=== PATIENT | male | born 1965 | race African-American/Black ===

== ENCOUNTER 2023-12-29 05:07 | Inpatient (IN) | payer BC, SELFPAY ==
[2023-12-29] VITALS (85 sets, daily range): BP systolic 91–212; BP diastolic 54–117; BMI 39.3; BMI 37.7
--- NOTE | 2023-12-29 02:58 | ED.GENMED ---
History of Present Illness
General
Chief Complaint: Blood Pressure Problem
Source: patient, spouse and previous hospital records (Previous hospitalization 2020 for somewhat similar complaint.)
Exam Limitations: altered mental status
Time Seen by Provider: 12/29/23 02:53
Nursing documentation reviewed up to this point in time: agreed with
History of Present Illness
History of Present Illness:
This is a 58-year-old gentleman with history of hypertension, hyperlipidemia, obstructive sleep apnea with prior history of malignant hypertension with hypertensive encephalopathy requiring hospitalization with IV Cardene, unremarkable neuroimaging.
called 911 tonight when she found her poorly responsive lying on the bed, significantly hypertensive. She states very similar episodes have occurred 5 times previously with altered mental status related to significant hypertension.
She states he has been taking his blood pressure medications religiously without recent change.
He has required acute hospitalization with IV Cardene on 2 previous occasions, most recently 2020. Other episodes less severe requiring oral medications with discharge to home.
There has been no recent falls, he takes no anticoagulants. No history of alcohol nor drug use.
No history of prior CVA.
Noted to be significantly hypertensive prehospital. He arrives via EMS.
Past History
Past History
ED Past Medical History: HTN, Hypercholesterolemia, Renal failure (Chronic kidney disease stage III with episode of acute kidney injury related to hypertension March 2020), Psychiatric (PTSD) and Other (Migraine headaches; hypertensive
encephalopathy; obstructive sleep apnea)
ED Past Surgical History: Orthopedic
Social History
Tobacco: Non-smoker
Alcohol: None
Drug: None
Personal:
Living: with family
Employment: Employed
Family History
Family History: Other (Noncontributory)
Phy Exam
Physical Exam
Physical Exam:
GENERAL: 58-year-old obese gentleman appears somewhat older than stated age. He is drowsy, appears uncomfortable, able to follow simple commands and answering simple questions appropriately. Admits to significant headache, denies chest pain,
denies weakness nor numbness.
EYE: pupils equal and reactive. Moderate photophobia. Anicteric
NECK: Supple, nontender, no meningismus, no significant adenopathy. No JVD.
ENT: posterior pharynx is clear, oral mucosa is moist. TM clear b/l, nares patent.
CARDIAC: Regular rate and rhythm. no murmur.
LUNGS: Clear breath sounds bilaterally, no acute respiratory distress, no wheezes/rales/rhonchi
ABDOMEN: Rotund, soft, nondistended, without focal tenderness, no r/g, normoactive BS.
NEUROLOGICAL: Moderately drowsy, opens eyes to verbal stimuli, answering simple questions and following simple commands, oriented x 2, motor strength 5/5 bilaterally. Gross sensation is intact.
SKIN: Warm and dry, normal color, skin intact. No rash.
MUSCULOSKELETAL: No C/C/E. peripheral pulses are full and equal b/l. No palpable tenderness.
PSYCH: Normal and appropriate interaction.
Scores
NIH Stroke Score
Level of Consciousness: 1 - Arousable
LOC Questions: 0-Answers both correctly
LOC Commands: 0-Performs both correctly
Best Horizontal Gaze: 0-Normal
Visual Hanley: 0=Normal, no visual loss
Facial Palsy: 0=Normal, symmetrical
Motor - Right Arm: 0=No drift 10 seconds
Motor - Left Arm: 0=No drift 10 seconds
Motor - Right Le-No drift 5 seconds
Motor - Left Le-No drift 5 seconds
Limb Ataxia: 0-Absent
Sensation: 0-Normal
Best Language: 0-No aphasia
Dysarthria: 0-Normal
Extinction and Inattention: 0-No abnormality
Total Score:: 1
Course
Orders/Labs/Results
Orders:
Orders
12/29/23 02:51
Electrocardiogram (*1) Urgent
Reason for Study: Hypertension, Benign
EKG- Treatment ONCE
12/29/23 02:53
CT Head W/o Iv Contrast Urgent
Comment:
Reason For Exam: hypertensive/confusion
12/29/23 03:00
CMP [Comprehensive Metabolic Panel] Urgent
Complete Blood Count/With Diff Urgent
Troponin I Urgent
12/29/23 03:06
Nicardipine 40 mg/200 ml [Cardene] 40 mg in 200 ml IV NOW
Initial dose in mg/hr, then titrate:: 5
Titrate to keep:: SBP 140 - 160 mmHg
Titrate by mg/hr:: 2.5 mg/hr
Frequency of titrations (minutes):: 5-15 minutes
Maximum dose in mg/hr:: 15
Begin to taper infusion when:: Remained at goal for 2hrs
Taper by mg/hr:: 2.5 mg/hr
Frequency of taper (minutes) if patient maintains goal:: every 15-30 minutes
Taper to off?: Yes
If infusion off & no longer maintaining goal:: Contact Provider
Abnormal Lab Results
12/29/23
03:00
RBC 4.24 L 10^6/uL
(4.70-6.10)
Hct 37.0 L %
(39.0-52.0)
Absolute Monos (auto) 1.0 H 10^3/uL
(0.1-0.6)
Monocytes % 12.2 H %
(1.7-9.3)
Potassium 3.4 L mmol/L
(3.5-5.1)
BUN 23 H mg/dl
(9-20)
12/29/23 03:00
12/29/23 03:00
Vital Signs
Initial and Last Documented VS:
Initial Vital Signs
Temp Pulse Resp BP Pulse Ox
98.6 F 61 18 212/113 98
12/29/23 02:55 12/29/23 02:55 12/29/23 02:55 12/29/23 02:55 12/29/23 02:55
Last Documented Vital Signs
Temp Pulse Resp BP Pulse Ox
98.6 F 61 18 212/113 98
12/29/23 02:55 12/29/23 02:55 12/29/23 02:55 12/29/23 02:55 12/29/23 02:55
MDM/Problems Addressed
Differential Diagnosis Includes:
Concern for recurrent hypertensive encephalopathy, concern for acute CVA�hemorrhagic versus ischemic.
Onset of symptoms unknown as patient found altered by upon returning home from work.
Significantly hypertensive thus at this point not a candidate for tPA as well as initial NIH stroke scale of 1�arousable upon arrival. Since arrival however now is much more awake, much more conversant and NIH stroke scale has improved to 0.
Chronic conditions affecting care: HTN, Neurological disorder (History of similar hypertensive encephalopathy episodes in the past. History of migraine headaches.) and Kidney disease
*Radiology
Radiology exam reviewed: radiology read reviewed (CT of the head is unremarkable)
*Pulse Oximetry
Patient hypoxic: no
*EKG
Interpreted by ED Provider?: Yes
Interpretation: abnormal
Comparison EKG: no changes (Unchanged from previous February 2023)
Rate: normal
Rhythm: sinus
[place]: normal axis
Interval: normal interval
QRS Pattern: normal QRS
Ischemia: T-wave inversion (Flipped T waves laterally, similar and unchanged from previous.)
*Controls Technician Interpretation
Rate: normal
Interpretation: normal
Rhythm: sinus
*Critical Care Note
Total Time (30-74mins, 75-104mins- exclusive of procedures): 30
comment:
Critical care statement: A total of 30 minutes of critical care time was provided for this patient. This includes management of unstable vital signs, evaluation of the patient at bedside, reviewing the patient's pertinent medical records, discussion
with consultants, review of old EKGs and review of pertinent medical records. This time with separate from time utilized to perform the aforementioned documented procedures
Update Note
Update Note:
Blood pressure markedly improved with IV Cardene.
Patient continues with generalized headache, slowly improving. Complaints of 'funny sensation of left hand' he also notes upper central chest discomfort that is much worse with palpation. No crepitus. does note that she attempted to arouse
her by banging on his chest quite vigorously and she also noted that he was lying on his left side, left arm beneath him.
He continues to have no focal neurodeficits. Hand grasp are equal, negative drift, sensation intact.
CT of the head is unremarkable.
Will continue IV Cardene, continue frequent neurochecks and admit to hospitalist service.
ED Attending Note
-
Portions of this chart may have been created with voice recognition software.� Occasional wrong word or��sound alike� substitutions may have occurred due to the inherent limitations of voice recognition software.
Discharge Plan
Departure
Patient Disposition: Admit
Date of Disposition: 12/29/23
Time of Disposition: 04:22
Admit to: IVU
Admit to doctor: Mart
Presentation/result/management discussed w/ accepting MD/DO: Hospitalist
Condition: Serious
Discharge Problem:
Malignant essential hypertension, Hypertensive encephalopathy
Prescriptions:
No Action
prazosin [Minipress] 2 MG capsule
2 mg PO BID
diclofenac sodium 100 GRAM/TUBE gel
1 applic topical DAILYPRN PRN (Reason: leg/knee pain)
nifedipine 30 MG tablet extended release
30 mg PO DAILY Qty: 30 0RF
metoprolol tartrate 100 mg tablet
100 mg PO BID
chlorthalidone 25 mg tablet
25 mg PO DAILY
sildenafil 100 mg tablet
100 mg PO DAILY PRN (Reason: ED)
pravastatin 80 mg tablet
80 mg PO QPM
valsartan 160 mg tablet
160 mg PO DAILY
duloxetine 20 mg capsule,delayed release(DR/EC)
20 mg PO DAILY
cholecalciferol (vitamin D3) 25 mcg (1,000 unit) tablet
25 mcg PO DAILY
Referrals:
Russ Fierro DO [Family Provider] -
Interventions
Interventions:
*Risk Screen - Suicide Last Done: 12/29/23 02:55
*General Assessment Last Done: 12/29/23 02:55
*Neglect/Abuse Screening Last Done: 12/29/23 02:55
ED- Fall Risk Assessment Last Done: 12/29/23 03:14
ED- Cardiac Assessment Last Done: 12/29/23 03:14
ED- Neurological Assessment Last Done: 12/29/23 03:14
ED- Pulmonary Assessment Last Done: 12/29/23 03:14
Discharge Date and Time
Print Language: PASHTO
[2023-12-29] MEDS: CARDENE 200 IV ×2 (03:12→08:24)
[2023-12-29 03:13] LABS: % Basophils 0.5 % (0-2); % Eosinophils 1.4 % (0-6); % Immature Granulocytes 0.4 % (0-0.5); % Lymphocytes 22.4 % (20.5-51.1); % Monocytes 12.2 % (1.7-9.3); % Neutrophils 63.1 % (42.2-75.2); Absolute Eosinophils 0.1 10^3/uL (0-0.7); Absolute Lymphocytes 1.8 10^3/uL (1.2-3.4); Absolute Neutrophils 4.9 10^3/uL (1.4-6.5); Mean Corp Hgb Conc. 35.1 g/dL (33.0-37.0); Mean Corpuscular Hgb 30.7 pg (27.0-31.0); Mean Corpuscular Volume 87.3 fL (80.0-94.0); Nucleated Red Blood Cells % 0 % (-); Platelet Count 223 10^3/uL (130-400); Red Blood Cell Count 4.24 10^6/uL (4.70-6.10); Red Cell Dist. Width 12.1 % (11.5-14.5); White Blood Cell Count 7.8 10^3/uL (4.8-10.8)
[2023-12-29 03:30] LABS: ALT (SGPT) 22 U/L (0-50); AST (SGOT) 29 U/L (17-59); Albumin 4.3 g/dl (3.5-5.0); Alkaline Phosphatase 72 U/L (38-126); Blood Urea Nitrogen 23 mg/dl (9-20); Calcium 8.9 mg/dl (8.4-10.2); Carbon Dioxide 29 mmol/L (22-30); Chloride 100 mmol/L (98-107); Estimated Creatinine Clearance 93 ml/min; Glucose 95 mg/dl (70-99); Potassium 3.4 mmol/L (3.5-5.1); Sodium 138 mmol/L (135-145); Total Bilirubin 1.3 mg/dl (0.2-1.3); Total Protein 7.1 g/dl (6.3-8.2); eGFR > 60.00
[2023-12-29 03:41] LABS: Troponin I 0.014 ng/ml
--- NOTE | 2023-12-29 05:02 | HPS.HSE ---
Family Physician
-
Family Physician: Russ Fierro
Chief Complaint
-
Unresponsive
History of Present Illness
Patient is a 58y M with PMH significant for hypertension and obesity who presents to ED after being found down at home by his . History obtained from patient and at the bedside. Patient states that he was watching the football game
this evening and her noted that he 'didn't feel well'. He cannot be more specific, but notes that he has had similar feelings in the past. He went up to bed around 11 - 11:30 PM this evening and that is the last thing that he recalls. His
came home and found him lying on the floor next to the bed. he was extremely difficult to arouse - ultimately requiring aggressive sternal rub to elicit a response. Patient did begin to come around and was brought to the ED for further evaluation
and treatment.
On arrival here at the ED, patient was much improved and appeared to be at his baseline according to his .
He complains of significant headache - currently a 09/16.
Patient has had multiple previous similar episodes. His most recent was within the past year when he was hospitalized at another institution.
He was last hospitalized here in March 2020.
Patient denies any recent changes in his med regimen. No recent illness.
Medical History
Past Medical History
Past Medical History: Reports Other
Additional Past Medical History:
Hypertension
Dyslipidemia
Obesity
FLORIN on CPAP
Anxiety
Bilateral PE (s/p TKA Revision)
Past Surgical History: Reports Other
Additional Past Surgical History:
Left Knee Arthroscopy
Right TKA / Revision Arthroplasty
Cholecystectomy
Cervical Fusion
Achilles Repair
Social History
Tobacco: Non-smoker
Alcohol: Occasional
Drug: None
Personal:
Living: With Family
Family History
Family History: Other (Father: HTN, Cerebral Aneurysm)
Allergies / Home Medications
Allergies reflects when Allergies were last updated in [employer]
Home Medications with original date entered in [employer]
Allergy/Medication List:
Allergies
Allergy/AdvReac Type Severity Reaction Status Date / Time
acetaminophen [From Percocet] Allergy Unknown Verified 12/29/23 03:03
adhesive tape Allergy Itching Verified 12/29/23 03:03
oxycodone [From Percocet] Allergy Hives/ITCHI Verified 12/29/23 03:03
NG
Home Medications
prazosin 2 mg capsule (Minipress) 2 mg PO BID Blood pressure 03/23/20
nifedipine 30 mg tablet,extended release 30 mg PO DAILY #30 tabs 03/26/20
duloxetine 20 mg capsule,delayed release 20 mg PO DAILY 03/05/23
metoprolol tartrate 100 mg tablet 100 mg PO BID 03/05/23
valsartan 160 mg tablet 320 mg PO DAILY 03/05/23
Review of Systems
-
History Source: Patient and Family
A 12 point ROS was completed and negative except as noted: Yes
Constitutional: Reports Fatigue; Denies Fever or Chills
Respiratory: Denies Cough or Trouble Breathing
Cardiac: Reports Chest Pain; Denies Palpitations
Abdomen/GI: Denies Abdominal Pain, Nausea, Vomiting or Diarrhea
: Denies Dysuria, Frequency or Flank Pain
Musculoskeletal: Denies Joint Pain or Edema
Neurological: Reports Headache; Denies Dizzy, Weakness or Numbness
Psych: Denies Depression or Anxiety
Physical Exam
Vital Signs
Vital Signs
Temp Pulse Resp BP Pulse Ox
98.6 F 61 18 212/113 98
12/29/23 02:55 12/29/23 02:55 12/29/23 02:55 12/29/23 02:55 12/29/23 02:55
Physical Exam
General: Other (58y M in no acute distress.)
HEENT: Moist mucous membranes, PERRLA and Other (Thick neck.)
Respiratory: Clear; No Wheezes, Rales or Rhonchi
Cardiac: S1/S2 and Regular Rhythm; No Murmur
GI: Soft, Non Tender, Non Distended and Normal Bowel Sounds
Musculoskeletal: No Clubbing, No Cyanosis and Other (1+ edema RLE)
Neuro: AO x 3 and Nonfocal/grossly intact
Laboratory Results
-
12/29/23 03:00
12/29/23 03:00
Laboratory Results
Total Bilirubin 1.3 mg/dl (0.2-1.3) 12/29/23 03:00
AST 29 U/L (17-59) 12/29/23 03:00
ALT 22 U/L (0-50) 12/29/23 03:00
Alkaline Phosphatase 72 U/L (38-126) 12/29/23 03:00
Troponin I 0.014 ng/ml 12/29/23 03:00
Impression/Plan
-
A/P: Patient is a 58y M with PMH significant for hypertension and prior episodes of hypertensive emergency who presents to ED after being found down this evening by his .
Hypertensive Emergency
Hypertensive Encephalopathy - Resolved
- Admit to ICU for further evaluation and treatment.
- Continue nicardipine infusion and titrate as needed for BP control.
- Nephrology evaluation for additional recommendations.
- Resume home BP med regimen in the AM and titrate off of nicardipine as able.
- Follow for any new / worsening symptoms. - Check UA, protein:creatinine, etc.
- Supportive care for headache, etc.
Chest Pain
- Patient admits to aching chest pain - likely secondary to vigorous sternal rub performed by his this evening.
- Troponin / EKG unremarkable.
- Monitor for any new / worsening symptoms.
Anxiety
- Stable. Continue prazosin / duloxetine / etc.
FLORIN
- Stable. Continue home CPAP.
Obesity due to excess calories
- Affects all aspects of care.
- Encourage healthy diet and increased exercise with goal of weight loss.
DVT Prophylaxis: SCDs
Code Status: Full
--- NOTE | 2023-12-29 06:35 | EDRN ---
Patient reports that his headache has become terrible, patient was transported upstairs, did inform ICU nurse and Dr. Cevallos about this, Dr. Cevallos stated he would order some meds.
--- NOTE | 2023-12-29 06:40 | PTCARENOTE ---
Pt arrived to floor via stretcher, c/o headache 09/16, ED nurse mer texted MD for PRN meds, cardene gtt infusing per order, pt AAOx3, 95% RA, denies chest pain and SOB, oriented to room, call christy in reach.
--- NOTE | 2023-12-29 08:00 | PTCARENOTE ---
0715 handoff bedside including brief neuro check, fully intact, call christy in reach. BP noted. skin warm, dry. cardene infusing as ordered, 7.5 mg/hr
--- NOTE | 2023-12-29 08:01 | CON.INTV ---
Consultation
Consultation Request
Date/Time Consultation Requested: 12/29/2023709
Date/Time Consultation Performed: 12/29/2023736
Requesting Provider: Dr. Cevallos
Performing Provider: Dr. Linares
Reason for Consultation: HTN emergency on cardene gtt
Medical History
-
Chief Complaint: General malaise, found down unresponsive
History of Present Illness:
58-year-old male with a past medical history of hypertension and anxiety who was found down on ground unresponsive, responding to pain only. He said he was watching a football game on the evening prior to arrival and did not feel well. He went to
bed at around 11 PM, [facility] that he recalls. found him at home lying on the floor next to the bed and he was very difficult to arouse ultimately requiring aggressive sternal rub to awaken him. Patient came to the ER and was markedly
improved by that time and was back to baseline. He endorses a significant headache which is 7 out of 10 on pain scale. He has had multiple previous episodes which were similar, with most recent episode about 1 year ago where he was hospitalized at
another hospital. Initial vitals showed hypertension to 212/113, heart rate 61, breathing at 18 breaths/min, saturating 98% on room air and he was afebrile to 98.6 �F. Initial labs showed Hb 13, WBC WNL at 7.8, potassium 3.4, and troponin was WNL
at 0.014. CT head showed no acute intracranial abnormalities, and CXR also showed no acute cardiopulmonary pathology. Patient was admitted to the ICU on Cardene drip, and associate accountant service is now consulted for additional
management/recommendations.
The patient was seen and evaluated this morning. He was still on CPAP when I saw him. He says that he gets his CPAP managed at the [facility] in [place], and has remained compliant with his CPAP. He says has been compliant with his home
medications. Vitals this morning show BP 111/75, heart rate 51, saturating 96% on room air. Off Cardene drip since this morning at 9:30 AM. His headache is now gone during my evaluation of him and he says he does not normally get a headache. He
denies chest pain, shortness of breath, abdominal pain, nausea, diarrhea, fevers or chills.
PMHx: Hypertension, dyslipidemia, obesity, FLORIN on CPAP, anxiety, bilateral PE (s/p knee surgery)
PSHx: Left knee arthroscopy, right TKA/revision arthroplasty, cholecystectomy, cervical fusion, Achilles repair
Past Medical History
Past Medical History: Other (Above as per HPI)
Past Surgical History: Other (Above as per HPI)
Social History
Tobacco: Non-smoker
Alcohol: Occasional
Drug: None
Personal:
Living: With Family
Family History
Family History: Hypertension (Father) and Other (Father: Cerebral aneurysm)
Allergies / Home Medications
Allergies
Allergy/AdvReac Type Severity Reaction Status Date / Time
acetaminophen [From Percocet] Allergy Unknown Verified 12/29/23 03:03
adhesive tape Allergy Itching Verified 12/29/23 03:03
oxycodone [From Percocet] Allergy Hives/ITCHI Verified 12/29/23 03:03
NG
Home Medications
�Medication �Instructions �Recorded �Confirmed �Last Taken �Type
prazosin 2 mg capsule (Minipress) 2 mg PO BID Blood pressure 03/23/20 12/29/23 03/05/23 History
nifedipine 30 mg tablet,extended 30 mg PO DAILY #30 tabs 03/26/20 12/29/23 03/05/23 Rx
release
duloxetine 20 mg capsule,delayed 20 mg PO DAILY 03/05/23 12/29/23 03/05/23 History
release
metoprolol tartrate 100 mg tablet 100 mg PO BID 03/05/23 12/29/23 03/05/23 History
valsartan 160 mg tablet 320 mg PO DAILY 03/05/23 12/29/23 03/05/23 History
Review of Systems
-
History Source: Patient
All other systems: Negative unless noted
Vitals / Labs / Diagnostic Testing
Vital Signs
Temp Pulse Resp BP Pulse Ox
97.8 F 85 23 178/115 93
12/29/23 08:00 12/29/23 08:08 12/29/23 07:15 12/29/23 08:08 12/29/23 07:15
Lab Data
12/29/23 03:00
12/29/23 03:00
Diagnostic Testing:
Physical Exam
-
HEENT: Normocephalic and Anicteric
Cardiovascular: S1/S2 and Peripheral Edema (negative)
Respiratory: Clear, Wheeze (negative), Rales (negative), Rhonchi (negative) and Non-Labored Respirations
GI: Soft, Distended (Abdominal obesity), Non Tender and Normal Bowel Sounds
Neurology: AO x 3 and Tremors (negative)
Skin: Warm and Dry
General: Respiratory Distress (negative), Comfortable, Chills (negative) and Sweats (negative)
Assessment
-
Assessment: 58-year-old male with a past medical history of hypertension and anxiety who was found down on ground unresponsive, responding to pain only. He said he was watching a football game on the evening prior to arrival and did not feel well.
He went to bed at around 11 PM, [facility] that he recalls. found him at home lying on the floor next to the bed and he was very difficult to arouse ultimately requiring aggressive sternal rub to awaken him. Patient came to the ER and was
markedly improved by that time and was back to baseline. He endorses a significant headache which is 7 out of 10 on pain scale. He has had multiple previous episodes which were similar, with most recent episode about 1 year ago where he was
hospitalized at another hospital. Initial vitals showed hypertension to 212/113, heart rate 61, breathing at 18 breaths/min, saturating 98% on room air and he was afebrile to 98.6 �F. Initial labs showed Hb 13, WBC WNL at 7.8, potassium 3.4, and
troponin was WNL at 0.014. CT head showed no acute intracranial abnormalities, and CXR also showed no acute cardiopulmonary pathology. Patient was admitted to the ICU on Cardene drip, and associate accountant service is now consulted for additional
management/recommendations.
Chronic conditions FLOUR TESTER: Hypertension, dyslipidemia, obesity, FLORIN on CPAP, anxiety, bilateral PE
Impression:
#Hypertensive emergency requiring Cardene drip - now off cardene gtt
#Hypokalemia (mild)
#Headache - now resolved
#PTSD (war vetaran)
#Resistant HTN
#Morbid obesity
#Hx of bilateral PE (provoked from knee operation)
Plan:
- Home antihypertensives were restarted this AM and he has now been successfully weaned off his Cardene drip since 9:30 AM
- use prn hydralazine
- monitor TERRAZAS recurrence and Tx with cocktail if needed with reglan + tylenol, +/- triptan
- Follow-up renal artery ultrasound
- Follow-up renin:aldosterone ratio
- He has been worked up in the past for pheochromocytoma and 2020, with workup negative. He also had normal renin activity and also normal aldosterone level
- Maintain SpO2 >90-94%
- Maintain MAP>65
- Replete electrolytes with K>4, Mg>2
- Maintain euglycemia with goal BG 140-180
- Trend H/H and transfuse if needed to keep Hb>7g/dL; kep plt>20k, unless there is concern for bleeding then keep plt>50k
- prn nebulized bronchodilators - not currently bronchospastic
- Incentive spirometer encouraged 10x per hour for at least 4 hrs a day
- DVT ppx - start LMWH
If patient remains hemodynamically stable off the Cardene drip for at least 6-12 hours then he can be transferred out of the ICU. Once transferred out of the ICU then we will sign off. Please call pulmonary service if there are any additional
questions or concerns. He will need to follow-up with his physician at the [facility] for continued management of his FLORIN on CPAP.
Critical care statement: A total of 40 minutes of critical care time was provided for this patient today. This includes management of unstable vital signs, evaluation of the patient at bedside, reviewing the patient's pertinent medical records
including radiographs, microbiology, laboratory evaluations, and discussion with primary team, consultants, pharmacy, nutrition, physical therapy, case management, charge nurse, critical care nursing, and respiratory therapy.
[2023-12-29] MEDS: MINIPRESS 2 MG PO ×2 (08:06→20:05)
[2023-12-29] MEDS: TYLENOL 650 MG PO (08:06)
[2023-12-29] MEDS: DIOVAN 320 MG PO (08:07)
[2023-12-29] MEDS: PROCARDIA XL (EXTENDED RELEASE) 30 MG PO (08:07)
[2023-12-29] MEDS: CYMBALTA DELAYED RELEASE 20 MG PO (08:07)
[2023-12-29] MEDS: LOPRESSOR 100 MG PO ×2 (08:08→20:03)
[2023-12-29 08:36] LABS: Urine Albumin Negative (Neg - Trace); Urine Bilirubin Negative (Negative); Urine Character Clear (Clear); Urine Color Yellow; Urine Glucose Negative (Negative); Urine Ketone Negative (Negative); Urine Leukocyte Negative (Negative); Urine Nitrite Negative (Negative); Urine Occult Blood Negative (Negative); Urine Specific Gravity 1.005 (<1.030); Urine Urobilinogen Negative (Neg - 1+)
[2023-12-29] MEDS: COMPAZINE 10 MG IV (08:39)
[2023-12-29 08:42] LABS: INR 0.97; PT 12.7 Sec (11.4-14.6)
[2023-12-29 08:52] LABS: APTT 30.2 Sec (23.4-35.0)
[2023-12-29] MEDS: TORADOL 15 MG IV (09:00)
[2023-12-29 09:31] LABS: Protein/creatinine Ratio 0.2; Urine Protein 12 mg/dl
[2023-12-29 09:40] LABS: TSH Reflex To Free T4 1.07 uIU/ml (0.47-4.68)
--- NOTE | 2023-12-29 09:42 | W.CON.NEPH ---
Consultation
-
Date/Time Consultation Requested: 12/29/23709
Date/Time Consultation Performed: 12/29/2304
Requesting Provider: Jesse Zhao
Performing Provider: Sara Banerjee
Reason for Consultation: HTN emergency
Medical History
-
Chief Complaint: Unresponsive
History of Present Illness:
58y M with PMH significant for hypertension on ARB, BB,Prazosin, Nifedipine, FLORIN on CPAP, Anxiety on Duloxetine and obesity who presents to ED after being found down at home by his . Pt only recalls that going to bed last night at 11-11:30pm.
He was reportedly found unresponsive on floor next to the bed by his . he was extremely difficult to arouse - ultimately requiring aggressive sternal rub to elicit a response. On arrival to ER patient was much improved and appeared to be at his
baseline according to his . He does not recall the events. BPs high at 212/113, started on Nicardipine gtt. He reports compliance with meds and CPAP. During visit he c/o TERRAZAS specially with low Bps in 90s and Nicardene gtt has been off since
45min. He denies any vision changes. His baseline BPs are 160-170/80-90s.
He has secondary w/u for HTN in n2021 admit and ARR, catecholamine, metanephrics were negative.
Reportedly Patient has had multiple previous similar episodes, which he is not able to recall. His most recent was within the past year when he was hospitalized at another institution.
Patient denies any recent changes in his med regimen. No recent illness. No active CP or sob. NO edema. No dysuria. Denies use of NSAIDs, it gave him GIB in the past.
Past Medical History
Hypertension
Dyslipidemia
Obesity
FLORIN on CPAP
Anxiety
Bilateral PE (s/p TKA Revision)
Past Surgical History: Other (Left Knee Arthroscopy Right TKA / Revision Arthroplasty Cholecystectomy Cervical Fusion Achilles Repair)
Social History
Tobacco: Non-Smoker
Alcohol: Occasional
Drug: None
Personal:
Living: With Family
Employment: Employed (he is in [place], was a soldier)
Family History
Father: HTN, Cerebral Aneurysm
Allergies / Home Medications
Allergy/AdvReac Type Severity Reaction Status Date / Time
acetaminophen [From Percocet] Allergy Unknown Verified 12/29/23 03:03
adhesive tape Allergy Itching Verified 12/29/23 03:03
oxycodone [From Percocet] Allergy Hives/ITCHI Verified 12/29/23 03:03
NG
�Medication �Instructions �Recorded �Confirmed �Type
prazosin 2 mg capsule (Minipress) 2 mg PO BID Blood pressure 03/23/20 12/29/23 History
nifedipine 30 mg tablet,extended 30 mg PO DAILY #30 tabs 03/26/20 12/29/23 Rx
release
duloxetine 20 mg capsule,delayed 20 mg PO DAILY 03/05/23 12/29/23 History
release
metoprolol tartrate 100 mg tablet 100 mg PO BID 03/05/23 12/29/23 History
valsartan 160 mg tablet 320 mg PO DAILY 03/05/23 12/29/23 History
Review of Systems
-
All complete 12 point ROS have been inquired and found negative other than stated in HPI
All other systems: Negative unless noted
Physical Exam
Vital Signs
Vital Signs
Temp Pulse Resp BP Pulse Ox
97.8 F 85 23 178/115 93
12/29/23 08:00 12/29/23 08:08 12/29/23 07:15 12/29/23 08:08 12/29/23 07:15
Lab Results
WBC 7.8 10^3/uL (4.8-10.8) 12/29/23 03:00
RBC 4.24 10^6/uL (4.70-6.10) L 12/29/23 03:00
Hgb 13.0 g/dL (13.0-18.0) 12/29/23 03:00
Hct 37.0 % (39.0-52.0) L 12/29/23 03:00
Plt Count 223 10^3/uL (130-400) 12/29/23 03:00
Sodium 138 mmol/L (135-145) 12/29/23 03:00
Potassium 3.4 mmol/L (3.5-5.1) L 12/29/23 03:00
Chloride 100 mmol/L (98-107) 12/29/23 03:00
Carbon Dioxide 29 mmol/L (22-30) 12/29/23 03:00
BUN 23 mg/dl (9-20) H 12/29/23 03:00
Creatinine 1.1 mg/dL (0.7-1.3) 12/29/23 03:00
eGFR > 60.00 12/29/23 03:00
Glucose 95 mg/dl (70-99) 12/29/23 03:00
Calcium 8.9 mg/dl (8.4-10.2) 12/29/23 03:00
Albumin 4.3 g/dl (3.5-5.0) 12/29/23 03:00
CXR:
IMPRESSION:
1. No acute intracranial abnormalities appreciated.
2. No significant change compared to prior study.
CXR:
IMPRESSION:
No active cardiopulmonary disease.
Physical Exam
General: Awake, Alert, Oriented, AOx3, No Distress and Nontoxic
HEENT: EOMI and Anicteric
Respiratory: Clear, Normal Excursion and Nonlabored Respirations
Cardiac: S1/S2 and Regular Rate/Rhythm
Breast: Deferred by me
Abdomen: Soft, Nontender and Nondistended
Musculoskeletal: No Cyanosis and No Edema
Skin: No Rash, Warm and Normal Turgor
Neuro: Nonfocal/Grossly Intact
Psych: Mood/afflect pleasant, Insight/judgement good and Appropriate
Data Reviewed
-
Radiology: Report Reviewed by me, Discussed with Nurse and Discussed with Patient
Labs: Labs Reviewed by me and Discussed with Patient
Assessment/Plan
-
IMP:
Hypertensive Emergency
Hypertensive Encephalopathy
Chest Pain
Anxiety
FLORIN
Obesity due to excess calories
h/o PE
Plan:
A/w HTN emergency and unresponsive at home
previous w/u -ARR, catecholamines, metanephrics were neg in 2020
cont to hold Nicardene gtt as BP are low
back on home meds Nifedipine, Prazosin , ARB and BB
mild hypokalemia -replace , check ARR
also check renal duplex
CPAP for FLORIN
consider to check echo
would hold all anti HTN meds till BP improves
d/w pt
--- NOTE | 2023-12-29 10:00 | PTCARENOTE ---
0930 sleeping, BP noted, cardene off.
[2023-12-29 11:13] LABS: Phosphorus 3.1 mg/dl (2.5-4.5)
[2023-12-29] MEDS: KLOR-CON 40 MEQ PO (12:18)
--- NOTE | 2023-12-29 13:51 | PTCARENOTE ---
ultrasound in progress.
--- NOTE | 2023-12-29 14:44 | CM ---
CM following re: discharge planning.
Reviewed pt's chart, met with pt and pt's spouse Coco at bedside.
Pt is a 58 year old male, admitted with primary dx of HTN.
Pt reports she lives with spouse 2SH, 3 steps to enter, has 4 supportive children. Pt described himself as independent in all areas [employer], [employer] , enrolled with [facility] for services, has C-Pap machine.
PCP: Russ Goddard at [facility]: [facility]
D/C plan: home with anticipated no needs. Family to transport at discharge.
CM will follow with discharge plan updates as hospitalization progresses
--- NOTE | 2023-12-29 15:05 | W.PN.HOSP.TC ---
Today's Communication/Plan
-
BP now low, therefore will hold meds. If BP climbs, can resume night doses and gradually reintroduce PO meds
and f/u renal w/u
Assessment / Plan
Assessment / Plan
Assessment:
Hypertensive Emergency
Hypertensive Encephalopathy - Resolved
- s/p Nicardipine infusion
- resumed back on PO meds, Nifedipine, Prazosin , ARB and BB but BP now low, therefore will hold meds. If BP climbs, can resume night doses and gradually reintroduce PO meds
- check ARR and renal Duplex
- check Echo
Chest Pain
- Patient admits to aching chest pain - likely secondary to vigorous sternal rub performed by his this evening.
- Troponin/EKG unremarkable.
- Monitor for any new/worsening symptoms.
Anxiety
- Stable. Continue prazosin/duloxetine
FLORIN
- Stable. continue home CPAP.
Obesity due to excess calories
- Affects all aspects of care.
- Encourage healthy diet and increased exercise with goal of weight loss.
DVT Prophylaxis: SCDs
Code Status: Full
Anticipated Discharge: 24 - 48 hours
Subjective/Interval History
-
Date of Service: December 29, 2023
resting comfortably, headache improving
Objective Data
-
Labs:
Laboratory Results
12/29/23 12/29/23
03:00 08:22
WBC 7.8
Hgb 13.0
Hct 37.0 L
Plt Count 223
PT 12.7
INR 0.97
APTT 30.2
Sodium 138
Potassium 3.4 L
Chloride 100
Carbon Dioxide 29
BUN 23 H
Creatinine 1.1
Glucose 95
Calcium 8.9
Total Bilirubin 1.3
AST 29
ALT 22
Alkaline Phosphatase 72
Vital Signs:
Vital Signs
Temp Pulse Resp BP Pulse Ox
97.6 F 55 16 104/63 96
12/29/23 11:48 12/29/23 13:45 12/29/23 13:45 12/29/23 13:30 12/29/23 13:45
I&O
12/28/23 12/29/23 12/30/23
06:59 06:59 06:59
Intake Total 675.0 / 675.0
Output Total 425 / 425
Balance 250.0 / 250.0
Physical Exam
-
General: No Apparent Distress
HEENT: Normocephalic
Respiratory: Clear to Auscultation; Negative Wheezes or Rales
Cardiac: Regular Rhythm and S1/S2
GI: Soft and Nontender
Neuro: AO x 3
Hematologic / Lymphatic: No Lymphadenopathy
Psych: Calm
Data Reviewed
-
Total Time Spent with Patient (in minutes): 41
Labs: Labs Reviewed by me
--- NOTE | 2023-12-29 15:14 | PTCARENOTE ---
ate lunch, exhausted, visiting, updated. presently sleeping, no c/o.
[2023-12-29] MEDS: LOVENOX 40 MG SC (17:38)
--- NOTE | 2023-12-29 19:30 | PTCARENOTE ---
received report from RN, pt sleeping but easily arousable by voice, denies headache pain, NSR on the monitor, + radials and pedals, SCDS no edema, lungs clear on RA SATs 95%, round soft non tender BSx4, using urinal due to void, oob x1, skin dry and
intact, 22G RH, 20G LAC, pt able to make needs known, call christy within reach otherwise refer to documentation
[2023-12-30] VITALS (34 sets, daily range): BP systolic 117–165; BP diastolic 69–110; PULSE 54–70; BMI 38.0
--- NOTE | 2023-12-30 00:32 | PTCARENOTE ---
systems reviewed, pt voided pam color output, pt sleeping with CPAP on, otherwise refer to documentation
--- NOTE | 2023-12-30 04:28 | PTCARENOTE ---
systems reviewed, ortho BP done, labs drawn, pt denies headache, CPAP on, otherwise refer to documentation
[2023-12-30 04:32] LABS: Hematocrit 36.4 % (39.0-52.0); Hemoglobin 12.7 g/dL (13.0-18.0); Mean Corp Hgb Conc. 34.9 g/dL (33.0-37.0); Mean Corpuscular Volume 88.8 fL (80.0-94.0); Platelet Count 231 10^3/uL (130-400); White Blood Cell Count 7.7 10^3/uL (4.8-10.8)
[2023-12-30 04:58] LABS: Blood Urea Nitrogen 28 mg/dl (9-20); Calcium 8.8 mg/dl (8.4-10.2); Carbon Dioxide 25 mmol/L (22-30); Chloride 102 mmol/L (98-107); Estimated Creatinine Clearance 72 ml/min; Glucose 104 mg/dl (70-99); Potassium 3.5 mmol/L (3.5-5.1); Sodium 137 mmol/L (135-145)
[2023-12-30] MEDS: APRESOLINE 10 MG IV (06:01)
[2023-12-30] MEDS: CYMBALTA DELAYED RELEASE 20 MG PO (08:00)
[2023-12-30] MEDS: DIOVAN 320 MG PO (08:01)
[2023-12-30] MEDS: PROCARDIA XL (EXTENDED RELEASE) 30 MG PO ×2 (08:01→20:33)
[2023-12-30] MEDS: MINIPRESS 2 MG PO ×2 (08:01→20:33)
[2023-12-30] MEDS: LOPRESSOR 100 MG PO ×2 (09:11→20:33)
--- NOTE | 2023-12-30 09:36 | PTCARENOTE ---
Physician notified RN that patient is complaining of chest pain that radiates to back. Current vitals- BP 130/92, HR 63, RR 15, Pulse ox 96%. EKG in progress. RN with patient 5 minutes prior. Patient ambulated to bathroom for hygiene. OOB in chair.
No complaints at that time. Orthostatic vital signs [id number]: laying- 132/85 58 , sitting- 134/88 67, standing- 136/92 70.
--- NOTE | 2023-12-30 10:17 | PTCARENOTE ---
Patient stating pain is now resolved. Pain described at 'throbbing'.
--- NOTE | 2023-12-30 10:47 | PTCARENOTE ---
Patient downgraded to tele level.
--- NOTE | 2023-12-30 11:05 | W.PN.NEPH.PH ---
Today's Communication / Plan
-
see plan
Assessment/Plan
-
IMP:
Hypertensive Emergency
Hypertensive Encephalopathy
Chest Pain
Anxiety
FLORIN
Obesity due to excess calories
h/o PE
WALT
Plan:
A/w HTN emergency and unresponsive at home
previous w/u -ARR, catecholamines, metanephrics were neg in 2020
reports pt was follows with cards at [facility] and had extensive w/u including stress test in the past
BP relatively stable off nicardene gtt
pt admits missing Prazosin frequently (originally given for PTSD by [facility])-likely is the cause of uncontrolled BPs too
cont home meds Prazosin , ARB and BB, Nifedipine dose increased to BID by primary
need to be careful with combination of Nifedipine and Prazosin as both are strong vasodilators
mild WALT -cr up at 1.4(baseline cr 1 per ), bland UA, likely hemodynamic specially low Bps yesterday
if cr cont to rise likely hold ARB
no PREETI on US
mild hypokalemia -replace , pending ARR
consider to check echo
d/w pt and at bedside
-
-
Date of Service: December 30, 2023
CC / HPI / ROS
-
Chief Complaint:
HTN emergency, WALT
History of Present Illness:
cr up at 1.4
BP stable this am, mildly high last night
no fever
Review of Systems:
no CP, or sob
no abd pain
TERRAZAS resolved
Labs
-
Labs:
WBC 7.7 10^3/uL (4.8-10.8) 12/30/23 04:04
RBC 4.10 10^6/uL (4.70-6.10) L 12/30/23 04:04
Hgb 12.7 g/dL (13.0-18.0) L 12/30/23 04:04
Hct 36.4 % (39.0-52.0) L 12/30/23 04:04
Plt Count 231 10^3/uL (130-400) 12/30/23 04:04
Sodium 137 mmol/L (135-145) 12/30/23 04:04
Potassium 3.5 mmol/L (3.5-5.1) 12/30/23 04:04
Chloride 102 mmol/L (98-107) 12/30/23 04:04
Carbon Dioxide 25 mmol/L (22-30) 12/30/23 04:04
BUN 28 mg/dl (9-20) H 12/30/23 04:04
Creatinine 1.4 mg/dL (0.7-1.3) H 12/30/23 04:04
eGFR 57.90 12/30/23 04:04
Glucose 104 mg/dl (70-99) H 12/30/23 04:04
Calcium 8.8 mg/dl (8.4-10.2) 12/30/23 04:04
Phosphorus 3.1 mg/dl (2.5-4.5) 12/29/23 03:00
Albumin 4.3 g/dl (3.5-5.0) 12/29/23 03:00
Physical Exam
-
Vital Signs:
Vital Signs
Temp Pulse Resp BP Pulse Ox
97.8 F 59 19 136/88 94
12/30/23 08:25 12/30/23 10:00 12/30/23 10:00 12/30/23 10:00 12/30/23 10:00
Cardiovascular:: Regular rate and rhythm
Respiratory:: Bilateral: CTA
Lung Excursion:: Normal
Abdomen:: Nontender and Soft
Extremity Edema:: None: Bilateral:
Marcum Catheter: No
--- NOTE | 2023-12-30 11:33 | PTOTSP ---
The patient demonstrated independence with ambulation and elevations, no mobility deficits noted. No PT needs identified at this time, will sign off.
--- NOTE | 2023-12-30 14:00 | CM ---
CM following re: discharge planning.
Reviewed pt's chart. Nephrology following.
D/C plan remains unchanged - home with family support. Spouse to transport at discharge.
CM will follow with discharge plan updates as hospitalization progresses
--- NOTE | 2023-12-30 14:01 | PTCARENOTE ---
Report given to 4E RN. Room in progress of being cleaned.
--- NOTE | 2023-12-30 14:19 | W.PN.INTV ---
Today's Communication / Plan
Recommendations
Increased nifedipine 30 to twice daily-Continue home meds--Downgrade to tele
Assessment
-
58-year-old male with a past medical history of hypertension and hypertensive encephalopathy (x5) who presented after his found him at home lying on the floor and poorly responsive. Patient mental status returned back to baseline in the ER but
he complained of a severe headache at that time (09/16). Cardene drip was started immediately in ED. [facility] service is following for additional management/recommendations.
Cardene was stopped yesterday morning and Hydralazine started. Vitals this morning show BP 138/80, heart rate 96, saturating 98% on room air. Renal US did not show PREETI. CXR was unremarkable. Rest of labs for secondary HTN w/o are pending. Creatine
increased to 1.4 today, possibly medication-induced.
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
Patient is alert and oriented (AO x3)
Headache resolved
Patient has been off Cardene > 24hrs. BP seem to be controlled with home meds and Hydralazine.
Increase Nifedipine to 30 BID
Continue rest of home BP meds with same dose
Continue Hydralazine (if needed)
EKG performed for throbbing sensation in chest--Did not show any ischemic changes
Based on patients clinical presentation and BP being controlled off Cardene, he can be downgraded to tele.
Will monitor for any signs of worsening WALT
Check BMP daily
Subjective Dataa
Subjective Data
Date of Service:
Date of Service: December 30, 2023
Chief Complaint: [facility] Follow Up
Subjective:
Alert and oriented. He is not on CPAP anymore. Is adequately saturating on room air w/o any distress. Off Cardene drip since yesterday. Received all his BP meds this am including Hydralazine. Currently, does not complain of a headache or blurry
vision. He denies chest pain, shortness of breath, abdominal pain, nausea, diarrhea, fevers or chills. Reports a throbbing sensation in chest that lasted for about 5mins.
Review of Systems
Cardiopulmonary: Other (throbbing sensation in chest)
Genitourinary: Other
Objective Data
Data Reviewed
Vital Signs / I&O / Oxygen:
Vital Signs
Temp Pulse Resp BP Pulse Ox
97.8 F 59 19 136/88 94
12/30/23 12:07 12/30/23 10:00 12/30/23 10:00 12/30/23 10:00 12/30/23 10:00
Intake and Output
12/29/23 12/30/23 12/31/23
06:59 06:59 06:59
Intake Total 1275.0 / 1275.0 240 / 240
Output Total 875 / 875
Balance 400.0 / 400.0 240 / 240
Physical Exam
General: Comfortable and Good Appetite
HEENT: Normocephalic and Anicteric
Cardiovascular: S1-S2, Regular Rhythm and Other (No peripheral edema)
Respiratory: Clear and Non-Labored Respirations
GI: Soft, Non Distended, Non Tender and Normal Bowel Sounds
Neurology: Awake, Alert, AO x 3 and No Motor Deficits
Skin: Warm and Dry
Labs/Micro/Reports
Lab Data
12/30/23 04:04
12/30/23 04:04
--- NOTE | 2023-12-30 14:26 | W.PN.HOSP.TC ---
Today's Communication/Plan
-
continue BP meds, re-evaluate ARB in AM after renal function results; will place on hold for now
Assessment / Plan
Assessment / Plan
Assessment:
Hypertensive Emergency
Hypertensive Encephalopathy - Resolved
- s/p Nicardipine infusion
- resumed back on PO meds, Nifedipine, Prazosin , ARB and BB. hold parameters are in place.
- ARR pending
- no PREETI on Duplex
- check Echo
WALT likely from hypotension
- monitor BMP
Chest Pain
- Patient admits to aching chest pain - likely secondary to vigorous sternal rub performed by his this evening.
- resolved
- Troponin/EKG unremarkable.
- Monitor for any new/worsening symptoms.
Anxiety
- Stable. Continue prazosin/duloxetine
FLORIN
- Stable. continue home CPAP.
Obesity due to excess calories
- Affects all aspects of care.
- Encourage healthy diet and increased exercise with goal of weight loss.
Hypokalemia
- prn replacement
DVT Prophylaxis: SCDs
Code Status: Full
Anticipated Discharge: Within 24 hours
Subjective/Interval History
-
Date of Service: December 30, 2023
HTN stable
Cr 1.4
denies any new complaints
Objective Data
-
Labs:
Laboratory Results
12/30/23
04:04
WBC 7.7
Hgb 12.7 L
Hct 36.4 L
Plt Count 231
Sodium 137
Potassium 3.5
Chloride 102
Carbon Dioxide 25
BUN 28 H
Creatinine 1.4 H
Glucose 104 H
Calcium 8.8
Vital Signs:
Vital Signs
Temp Pulse Resp BP Pulse Ox
97.8 F 59 19 136/88 94
12/30/23 12:07 12/30/23 10:00 12/30/23 10:00 12/30/23 10:00 12/30/23 10:00
I&O
12/29/23 12/30/23 12/31/23
06:59 06:59 06:59
Intake Total 1275.0 / 1275.0 240 / 240
Output Total 875 / 875
Balance 400.0 / 400.0 240 / 240
Physical Exam
-
General: No Apparent Distress
HEENT: Normocephalic and Atraumatic
Respiratory: Negative Wheezes
Cardiac: Regular Rhythm and S1/S2
GI: Soft
Genito-urinary: No Costovertebral Tender
Musculoskeletal: No Edema
Neuro: AO x 3
Hematologic / Lymphatic: No Lymphadenopathy
Psych: Calm
Data Reviewed
-
Total Time Spent with Patient (in minutes): 42
Labs: Labs Reviewed by me
--- NOTE | 2023-12-30 14:27 | PTOTSP ---
Pt presents to OT with good vision, grossly intact cognition and good UB AROM, strength and coordination. Pt currently at mod I/I level with basic self care, transfers and functional mobility in room and bathroom without AD. No further skilled OT
indicated at this time.
[2023-12-30] MEDS: LOVENOX 40 MG SC (17:38)
[2023-12-31 03:38] VITALS: BP 167/112
[2023-12-31] MEDS: APRESOLINE 10 MG IV (03:41)
[2023-12-31 05:13] VITALS: BP 144/86
[2023-12-31 06:00] VITALS: BMI 38.0
[2023-12-31 07:11] LABS: Hematocrit 39.2 % (39.0-52.0); Hemoglobin 13.7 g/dL (13.0-18.0); Mean Corp Hgb Conc. 34.9 g/dL (33.0-37.0); Mean Corpuscular Hgb 30.9 pg (27.0-31.0); Mean Corpuscular Volume 88.3 fL (80.0-94.0); Platelet Count 252 10^3/uL (130-400); Red Blood Cell Count 4.44 10^6/uL (4.70-6.10); Red Cell Dist. Width 12.2 % (11.5-14.5); White Blood Cell Count 7.1 10^3/uL (4.8-10.8)
[2023-12-31 07:41] LABS: Blood Urea Nitrogen 23 mg/dl (9-20); Calcium 9.5 mg/dl (8.4-10.2); Carbon Dioxide 26 mmol/L (22-30); Chloride 104 mmol/L (98-107); Estimated Creatinine Clearance 91 ml/min; Glucose 98 mg/dl (70-99); Magnesium 2.2 mg/dl (1.6-2.3); Phosphorus 3.7 mg/dl (2.5-4.5); Potassium 3.6 mmol/L (3.5-5.1); Sodium 139 mmol/L (135-145); eGFR > 60.00
[2023-12-31 07:53] VITALS: BP 158/93
[2023-12-31 09:24] VITALS: BP 176/103
[2023-12-31] MEDS: MINIPRESS 2 MG PO (09:24)
[2023-12-31] MEDS: PROCARDIA XL (EXTENDED RELEASE) 30 MG PO (09:25)
[2023-12-31] MEDS: TYLENOL 650 MG PO (09:25)
[2023-12-31] MEDS: CYMBALTA DELAYED RELEASE 20 MG PO (09:25)
[2023-12-31] MEDS: LOPRESSOR 100 MG PO (09:25)
[2023-12-31 10:07] LABS: Aldosterone, Serum 21.3 ng/dL; Aldosterone/Renin Activ Ratio 26.6 ratio (<=25.0); Renin Activity Results 0.8 ng/mL/hr
[2023-12-31 10:20] VITALS: BP 155/94
--- NOTE | 2023-12-31 11:23 | W.PN.HOSP.TC ---
Today's Communication/Plan
-
dc to home
OP Nephrology f/u
Assessment / Plan
Assessment / Plan
Assessment:
Hypertensive Emergency
Hypertensive Encephalopathy - Resolved
- s/p Nicardipine infusion
- resumed back on PO meds, Nifedipine to BID, Prazosin BID and compliance encourage , ARB and BB.
- ARR <30 (26).
- no PREETI on Duplex
- Echo
WALT likely from hypotension
- monitor BMP
Chest Pain
- Patient admits to aching chest pain - likely secondary to vigorous sternal rub performed by his this evening.
- resolved
- Troponin/EKG unremarkable.
- Monitor for any new/worsening symptoms.
Anxiety
- Stable. Continue prazosin/duloxetine
FLORIN
- Stable. continue home CPAP.
Obesity due to excess calories
- Affects all aspects of care.
- Encourage healthy diet and increased exercise with goal of weight loss.
Hypokalemia
- prn replacement
DVT Prophylaxis: SCDs
Code Status: Full
More than 30 minutes spent in discharge including
Final examination of the patient
Summarizing hospital stay
Instructions for continuing care to all relevant caregivers
Preparation of discharge records, prescriptions, and referral forms
Total time spent (in minutes):41
Anticipated Discharge: Today
Subjective/Interval History
-
Date of Service: December 31, 2023
BP improving, no complaints
Objective Data
-
Labs:
Laboratory Results
12/31/23
06:41
WBC 7.1
Hgb 13.7
Hct 39.2
Plt Count 252
Sodium 139
Potassium 3.6
Chloride 104
Carbon Dioxide 26
BUN 23 H
Creatinine 1.1
Glucose 98
Calcium 9.5
Vital Signs:
Vital Signs
Temp Pulse Resp BP Pulse Ox
98.2 F 65 18 155/94 98
12/31/23 07:53 12/31/23 10:20 12/31/23 10:20 12/31/23 10:20 12/31/23 10:20
I&O
12/30/23 12/31/23 01/01/24
06:59 06:59 06:59
Intake Total 1275.0 / 1275.0 660 / 660
Output Total 875 / 875
Balance 400.0 / 400.0 660 / 660
Physical Exam
-
General: No Apparent Distress
HEENT: Normocephalic and Atraumatic
Respiratory: Negative Wheezes
Cardiac: Regular Rhythm and S1/S2
GI: Soft and Nontender
Genito-urinary: No Costovertebral Tender
Neuro: AO x 3
Hematologic / Lymphatic: No Lymphadenopathy
Psych: Calm
Data Reviewed
-
Total Time Spent with Patient (in minutes): 41
Labs: Labs Reviewed by me
--- NOTE | 2023-12-31 11:29 | W.DS.TRANS ---
DC Summary - Impersonator Character
-
Discharge Instructions:
Discharge Diagnosis/Procedures Hypertensive emergency
Diet Regular
Activity As tolerated
Bathing Restrictions None
Instructions:
Stand-Alone Forms:
Changes to Home Medications: Yes
Discharge Medications:
DC Medications w/original date entered in [employer]
duloxetine 20 mg capsule,delayed release 20 mg PO DAILY Mental Health/Anxiety 03/05/23
metoprolol tartrate 100 mg tablet 100 mg PO BID Heart Disease/Condition #60 tabs 12/31/23
nifedipine 30 mg tablet,extended release 30 mg PO BID #60 tabs 12/31/23
prazosin 2 mg capsule 2 mg PO BID #60 caps 12/31/23
valsartan 160 mg tablet 320 mg (2 x 160 mg) PO DAILY Blood Pressure #60 tabs 12/31/23
Home Medication Changes
Nifedipine to BID
Pending Results: No
Total time spent discharging patient (in min): 41
--- NOTE | 2023-12-31 15:12 | CM ---
MD entered order for discharge.
Family drove him home.
He declined VN
PLAN Home no needs
== END 2023-12-31 12:59 | disposition home or self-care (01) | DRG 78 ==
LOC: 4 EAST ACU 05:07
PROVIDERS: ADMITTING PHYSICIAN Hospitalist; ATTENDING PHYSICIAN Internal Medicine; EMERGENCY PHYSICIAN Emergency Medicine; FAMILY PHYSICIAN Family Medicine; OTHER PHYSICIAN Internal Medicine; OTHER PHYSICIAN Internal Medicine Critical Care Medicine
PROC: 5A09357 Assistance with Respiratory Ventilation, Less than 24 Consecutive Hours, Continuous Positive Airway Pressure (ICD-10-PCS; 2023-12-31)
PROC: 3E02340 Introduction of Influenza Vaccine into Muscle, Percutaneous Approach (ICD-10-PCS; 2023-12-31)
DX: I67.4 Hypertensive encephalopathy (principal); I16.1 Hypertensive emergency; N17.9 Acute kidney failure, unspecified; G47.33 Obstructive sleep apnea (adult) (pediatric); E78.00 Pure hypercholesterolemia, unspecified; E87.6 Hypokalemia; I1A.0 Resistant hypertension; R00.1 Bradycardia, unspecified; R07.9 Chest pain, unspecified; I10 Essential (primary) hypertension; F43.10 Post-traumatic stress disorder, unspecified; F41.9 Anxiety disorder, unspecified; E66.01 Morbid (severe) obesity due to excess calories; Z68.38 Body mass index [BMI] 38.0-38.9, adult; Z23 Encounter for immunization; Z86.711 Personal history of pulmonary embolism; Z96.651 Presence of right artificial knee joint; Z82.49 Family history of ischemic heart disease and other diseases of the circulatory system; Z79.899 Other long term (current) drug therapy; Z88.5 Allergy status to narcotic agent; Z91.148 Patient's other noncompliance with medication regimen for other reason
CPT/HCPCS: 70450; 71045; 80048; 80053; 81003; 82088; 82570; 83735; 84100; 84156; 84244; 84443; 84484; 85025; 85027; 85610; 85730; 93005; 93306; 93975; 96374; 97162; 97166; 99291